=== PATIENT | female | born 1935 | race Caucasian/White ===

== ENCOUNTER 2022-01-24 17:00 | Inpatient (IN) ==
[2022-01-24] MEDS ORDERED: Melatonin 3 MG TABLET PO PRN (19:59)
[2022-01-24] MEDS ORDERED: Ondansetron 4 MG/2 ML VIAL IVP PRN (19:59)
[2022-01-24] MEDS ORDERED: Naloxone 0.4 MG/ML INJ IVP PRN (19:59)
[2022-01-25] MEDS ORDERED: *HR* Dextrose 50 % in Water (Syg) 50 ML SYRINGE IVP PRN ×2 (00:14→13:32)
[2022-01-25] MEDS ORDERED: D5% in Water 1,000 ML IVC PRN ×2 (00:14→13:32)
[2022-01-25] MEDS ORDERED: Dextrose Gel 15 GM/37.5 ML TUBE PO PRN ×4 (00:14→13:32)
[2022-01-25] MEDS ORDERED: carvediloL 6.25 MG TABLET PO SCH (08:00)
[2022-01-25] MEDS ORDERED: Cyanocobalamin (B-12) 1,000 MCG TABLET PO SCH (09:00)
[2022-01-25 09:31] LABS: Bilirubin,Urine Negative (Negative); Blood,Urine Large (Negative); Clarity,Urine Turbid (Clear); Color,Urine Yellow (Yellow); Glucose,Urine (UA) Normal (Normal); Hyaline Casts,Urine Many per lpf (None Seen); Ketones,Urine Negative (Negative); Leukocyte Esterase,Urine Moderate (Negative); Mucus,Urine Many per lpf (None-Few); Nitrite,Urine Negative (Negative); PH,Urine 5.5 pH Units (5.0-8.0); Protein,Urine 70 mg/dL (Neg-Trace); RBC,Urine TNTC per hpf (0-3); Specific Gravity,Urine 1.026 (1.010-1.025); Squamous Epithelial Cell,Urine Few per hpf (None-Few); Transitional Epi Cells,Urine Few per hpf (None-Few); Urobilinogen,Urine Normal (Normal); WBC,Urine 30-50 per hpf (0-3)
[2022-01-25] MEDS ORDERED: Ondansetron 4 MG/2 ML VIAL ONE (10:14)
[2022-01-25] MEDS ORDERED: Lidocaine -MPF 2% 5 ML VIAL ONE (10:14)
[2022-01-25] MEDS ORDERED: *HR* Propofol 200 MG/20 ML VIAL IVP ONE (10:15)
[2022-01-25] MEDS ORDERED: *HR* FentaNYL (PF) 100 MCG/2 ML VIAL ONE (10:15)
[2022-01-25] MEDS ORDERED: Famotidine 20 MG/2 ML VIAL IVP ONE ×2 (10:33→13:32)
[2022-01-25] MEDS ORDERED: Acetaminophen IV 1,000 MG/100 ML BAG IVPB ONE ×2 (10:33→13:32)
[2022-01-25] MEDS ORDERED: Clindamycin 900 MG/50 ML 900 MG/50 ML IV.SOLN IVPB ONE (10:53)
[2022-01-25] MEDS ORDERED: Ringers Solution, Lactated 1,000 ML IVC SCH (11:00)
[2022-01-25] MEDS ORDERED: Morphine Sulfate 2 MG/ML SYRINGE IVP PRN (11:58)
[2022-01-25] MEDS ORDERED: cefTRIAXone 1,000 MG in 0.9 % Sodium Chloride 10 ML IVP SCH (12:00)
[2022-01-25] MEDS ORDERED: Ondansetron 4 MG/2 ML VIAL IVP PRN (13:32)
[2022-01-25] MEDS ORDERED: Naloxone 0.4 MG/ML INJ IVP PRN (13:32)
[2022-01-25] MEDS ORDERED: Melatonin 3 MG TABLET PO PRN (13:32)
[2022-01-25] MEDS: Ringers Solution, Lactated 1,000 ML IVC SCH (15:10)
[2022-01-25] MEDS: cefTRIAXone 1,000 MG in 0.9 % Sodium Chloride 10 ML IVP SCH (15:17)
[2022-01-25] MEDS: Clindamycin 900 MG/50 ML 900 MG/50 ML IV.SOLN IVPB SCH ×2 (15:22→23:23)
[2022-01-25] MEDS: carvediloL 6.25 MG TABLET PO SCH (16:13)
[2022-01-26] MEDS ORDERED: *HR* Heparin 5,000 UNIT/ML VIAL SQ SCH (06:00)
[2022-01-26] MEDS: *HR* Heparin 5,000 UNIT/ML VIAL SQ SCH ×2 (06:13→17:50)
[2022-01-26] MEDS: Aspirin Enteric Coated 325 MG Tablet PO SCH (08:56)
[2022-01-26] MEDS: cefTRIAXone 1,000 MG in 0.9 % Sodium Chloride 10 ML IVP SCH (08:57)
[2022-01-26] MEDS: carvediloL 6.25 MG TABLET PO SCH ×2 (08:57→15:35)
[2022-01-26] MEDS: Cyanocobalamin (B-12) 1,000 MCG TABLET PO SCH (08:58)
[2022-01-26 14:37] LABS: Basophils % 0.1 %; Hematocrit 29.8 % (35.3-44.9); Hematocrit 30.1 % (35.3-44.9); Hemoglobin 8.9 g/dL (11.5-15.4); Immature Granulocytes % 0.5 % (0-4); Lymphocytes # 1.1 K/mcL (0.6-4.6); Lymphocytes % 9.3 %; Mean Corpuscular HGB Conc 29.9 g/dL (31.6-35.5); Mean Corpuscular Hemoglobin 25.9 pg (28.0-33.3); Mean Corpuscular Volume 86.5 fL (83.0-100.0); Mean Corpuscular Volume 86.6 fL (83.0-100.0); Mean Platelet Volume 10.2 fL (9.4-12.4); Mean Platelet Volume 10.3 fL (9.4-12.4); Monocytes # 1.3 K/mcL (0.0-1.3); Monocytes % 10.4 %; Neutrophils # 9.7 K/mcL (1.6-8.9); Platelet Count 162 K/mcL (140-400); Platelet Count 176 K/mcL (140-400); Red Blood Count 3.44 M/mcL (3.82-4.97); Red Blood Count 3.48 M/mcL (3.82-4.97); Red Cell Distribution Width 16.6 % (11.5-14.5); Red Cell Distribution Width 16.7 % (11.5-14.5); Segmented Neutrophils % 79.7 %; White Blood Count 12.1 K/mcL (4.3-11.1)
[2022-01-26 14:47] LABS: INR 1.1; Prothrombin Time 12.3 Seconds (9.4-12.1)
[2022-01-26 14:50] LABS: Activated Partial Thrombo Time 25.7 Seconds (26.0-36.0)
[2022-01-26 14:55] LABS: Albumin 3.3 g/dL (3.5-5.7); Albumin/Globulin Ratio 1.3 (1.1-2.2); Bilirubin,Total 0.3 mg/dL (0.3-1.0); Calcium 8.4 mg/dL (8.6-10.3); Globulin 2.5 g/dL (2.4-3.5); Magnesium 1.6 mg/dL (1.6-2.6); Phosphorous 5.1 mg/dL (2.7-4.5); Total Protein 5.8 g/dL (6.4-8.9)
[2022-01-26 14:57] LABS: % Iron Saturation 8 % (15-50); Iron 26 mcg/dL (50-170); Transferrin 241 mg/dL (203-362)
[2022-01-26 15:14] LABS: Ferritin 41 ng/mL (10-120)
[2022-01-26 15:19] LABS: Folate 7.3 ng/mL (3.0-16.0)
[2022-01-26] MEDS ORDERED: 0.9 % Sodium Chloride 1,000 ML IVC SCH (15:30)
[2022-01-26] MEDS: Ringers Solution, Lactated 1,000 ML IVC SCH (20:15)
[2022-01-27 06:32] LABS: Calcium 8.2 mg/dL (8.6-10.3); Magnesium 1.8 mg/dL (1.6-2.6); Phosphorous 4.4 mg/dL (2.7-4.5); Potassium 4.2 mEq/L (3.5-5.1)
[2022-01-27] MEDS: carvediloL 6.25 MG TABLET PO SCH (08:59)
[2022-01-27] MEDS: Aspirin Enteric Coated 325 MG Tablet PO SCH (08:59)
[2022-01-27] MEDS: Cyanocobalamin (B-12) 1,000 MCG TABLET PO SCH (08:59)
[2022-01-27] MEDS: cefTRIAXone 1,000 MG in 0.9 % Sodium Chloride 10 ML IVP SCH (09:00)
[2022-01-27] MEDS ORDERED: Acetaminophen 325 MG TABLET PO PRN (11:35)
[2022-01-27 12:04] LABS: Basophils % 0.3 %; Eosinophils # 0.2 K/mcL (0.0-0.6); Eosinophils % 1.4 %; Hematocrit 30.1 % (35.3-44.9); Hemoglobin 9.3 g/dL (11.5-15.4); Immature Granulocytes % 0.7 % (0-4); Immature Platelets 2.8 % (1.1-6.1); Lymphocytes # 3.3 K/mcL (0.6-4.6); Mean Corpuscular HGB Conc 30.9 g/dL (31.6-35.5); Mean Corpuscular Hemoglobin 25.5 pg (28.0-33.3); Mean Corpuscular Volume 82.7 fL (83.0-100.0); Mean Platelet Volume 10.2 fL (9.4-12.4); Monocytes # 1.5 K/mcL (0.0-1.3); Neutrophils # 6.2 K/mcL (1.6-8.9); Platelet Count 157 K/mcL (140-400); Red Blood Count 3.64 M/mcL (3.82-4.97); Segmented Neutrophils % 55.6 %; White Blood Count 11.2 K/mcL (4.3-11.1)
[2022-01-27 13:35] LABS: Platelet Estimate Normal (Normal)
[2022-01-27 14:04] VITALS: BP 118/49; PULSE 69; TEMP 97.9; O2SAT 92
[2022-01-27 14:09] LABS: Influenza A PCR Negative (Negative); Influenza B PCR Negative (Negative); Resp. Syncytial Virus PCR Negative (Negative)
[2022-01-27 14:13] LABS: SARS-CoV-2 by PCR (In House) Negative (Negative)
== END 2022-01-27 17:25 | DRG 482 ==
LOC: 4WAOSI → SUATTDRO 18:59 → 4WAOSI 01-25 09:00
PROVIDERS: ADMIT Internal Medicine; ATTEND Internal Medicine